=== PATIENT | female | born 1990 | race Two or more races ===

== ENCOUNTER 2021-05-21 21:44 | Emergency (ER) | payer OTHER ==
[~2021-05-21] VITALS: Ht 157.5 cm; Wt 72.6 kg
== END 2021-05-21 23:50 | disposition home or self-care (01) ==
LOC: ER
DX: R51.9 Headache, unspecified (principal); I10 Essential (primary) hypertension

== ENCOUNTER 2021-12-02 11:17 | Emergency (ER) | payer OTHER ==
[~2021-12-02] VITALS: Ht 157.5 cm; Wt 70.3 kg
[2021-12-02] MEDS ORDERED: BACLOFEN10 MG PO (11:29)
[2021-12-02] MEDS ORDERED: LABETALOL HCL100 MG PO (11:29)
[2021-12-02] MEDS ORDERED: ADVIL200 M1 PO (11:29)
[2021-12-02] MEDS ORDERED: ORPHENADRINE C100 MG PO (16:15)
[2021-12-02] MEDS ORDERED: DICLOFENAC POTA50 MG PO (16:15)
[2021-12-02] MEDS ORDERED: HORIZANT300 MG PO (16:15)
== END 2021-12-02 18:13 ==
LOC: ER 11:17
DX: M62.830 Muscle spasm of back (principal); M54.16 Radiculopathy, lumbar region

== ENCOUNTER 2021-12-07 13:35 | Emergency (ER) | payer OTHER ==
[~2021-12-07] VITALS: Ht 165.1 cm; Wt 70.3 kg
[~2021-12-07 13:35] MED LIST: ADVIL200 M1 PO; BACLOFEN10 MG PO; DICLOFENAC POTA50 MG PO; HORIZANT300 MG PO; LABETALOL HCL100 MG PO; ORPHENADRINE C100 MG PO
== END 2021-12-07 21:16 | disposition home or self-care (01) ==
LOC: ER 13:35
DX: I16.9 Hypertensive crisis, unspecified (principal)

== ENCOUNTER 2023-02-10 14:54 | Emergency (ER) | payer OTHER ==
[~2023-02-10] VITALS: Ht 157.5 cm; Wt 74.8 kg
[2023-02-10] MEDS ORDERED: LOPRESSOR25 MG PO (15:31)
[2023-02-10] MEDS ORDERED: KETO10TA2 PO (21:53)
[2023-02-10] MEDS ORDERED: TRAMADOL HCL50 MG PO (21:53)
== END 2023-02-10 22:01 | disposition home or self-care (01) ==
LOC: ER 14:54
PROVIDERS: General Practice
DX: R10.2 Pelvic and perineal pain (principal); I10 Essential (primary) hypertension